=== PATIENT | female | born 1990 | race Two or more races ===

== ENCOUNTER 2023-02-21 15:31 | Outpatient (CLI) | payer OTHER | END 2023-02-21 15:34 | disposition home or self-care (01) | LOC: PRENATAL 15:31 | PROVIDERS: ATTEND Obstetrics & Gynecology Maternal & Fetal Medicine | DX: O35.9XX0 Maternal care for (suspected) fetal abnormality and damage, unspecified, not applicable or unspecified (principal); O35.3XX0 Maternal care for (suspected) damage to fetus from viral disease in mother, not applicable or unspecified; O44.00 Complete placenta previa NOS or without hemorrhage, unspecified trimester; O34.10 Maternal care for benign tumor of corpus uteri, unspecified trimester; Z3A.23 23 weeks gestation of pregnancy ==

== ENCOUNTER 2023-04-27 15:11 | Outpatient (CLI) | payer OTHER | END 2023-04-27 15:13 | disposition home or self-care (01) | LOC: PRENATAL 15:11 | PROVIDERS: ATTEND Obstetrics & Gynecology Maternal & Fetal Medicine | DX: O26.849 Uterine size-date discrepancy, unspecified trimester (principal); O36.8199 Decreased fetal movements, unspecified trimester, other fetus; O99.280 Endocrine, nutritional and metabolic diseases complicating pregnancy, unspecified trimester; O34.10 Maternal care for benign tumor of corpus uteri, unspecified trimester; Z3A.32 32 weeks gestation of pregnancy ==

== ENCOUNTER → 2023-05-25 14:54 | Outpatient (CLI) | payer OTHER | END | disposition home or self-care (01) | LOC: PRENATAL 14:54 | PROVIDERS: ATTEND Obstetrics & Gynecology Maternal & Fetal Medicine | DX: O26.849 Uterine size-date discrepancy, unspecified trimester (principal); O36.8199 Decreased fetal movements, unspecified trimester, other fetus; O99.280 Endocrine, nutritional and metabolic diseases complicating pregnancy, unspecified trimester; O34.10 Maternal care for benign tumor of corpus uteri, unspecified trimester; O24.419 Gestational diabetes mellitus in pregnancy, unspecified control; Z3A.36 36 weeks gestation of pregnancy ==

== ENCOUNTER 2023-05-28 02:34 | Outpatient (CLI) | payer OTHER ==
[~2023-05-28] VITALS: Ht 175.3 cm; Wt 100.2 kg
[2023-05-28] MEDS ORDERED: OBSTETRIX ONE CAPSUL (02:52)
[2023-05-28] MEDS ORDERED: SYNTHROID50 MCG PO (02:53)
[2023-05-28] MEDS ORDERED: RINGERS SOLUTION,LACTATED 1,000 ML IV SCH (03:30)
[2023-05-28] MEDS ORDERED: LEVOTHYROXINE SODIUM 50 MCG TABLET PO STA (08:29)
== END 2023-05-28 08:55 | disposition home or self-care (01) ==
LOC: OBS/DEL 02:34
PROVIDERS: ATTEND Student in an Organized Health Care Education/Training Program
DX: O36.8190 Decreased fetal movements, unspecified trimester, not applicable or unspecified (principal); Z3A.36 36 weeks gestation of pregnancy